=== PATIENT | female | born 1995 | race Caucasian/White ===

== ENCOUNTER 2019-03-05 16:45 | Inpatient (IN) | payer MEDICAID, OTHER ==
[2019-03-05] MEDS ORDERED: DIAZEPAM 2 MG TAB PO STA (18:08)
--- NOTE | 2019-03-05 18:08 | ED ---
Psych HPI - General Chief Complaint: Psychiatric Symptoms Stated Complaint: Mental health Time Seen by Provider: 03/05/19 17:13 Source: patient Mode of arrival: ambulatory - History of Present Illness Initial Comments: 23-year-old female with a history of depression on Celexa presenting with worsening depressive symptoms and suicidal ideations. Patient's mother states that she lives in the basement, and for the last 1 month has been sleeping 20 hours a day, has lost 2 jobs, and describes the basement as a "hoarder situation." She states that there are clothes in the basement soaked an animal feces and urine, rotting food, and general disarray. The patient states that she has no history of inpatient psychiatric admissions, and has one suicide attempt in the past that she described as a cry for help when she wrapped a plastic back around her face. He admits that her and her mother got into a fight, which has caused 24 hours of constant suicidal ideations with a plan to jump [place] the [place]. She states she's attempted multiple times to obtain psychiatric care, but has been unable to do so. She sees a counselor every month and a half, but her mother states that the patient has such poor insight she doesn't know with talk about when she is there. She denies any homicidal ideations. Denies any auditory or visual hallucinations. Drug or alcohol use. - Related Data Home Medications Medication Instructions Recorded Confirmed Sertraline [Zoloft] 150 mg PO DAILY 03/05/19 03/05/19 Allergies Allergy/AdvReac Type Severity Reaction Status Date / Time latex Allergy Rash/Hives Verified 03/05/19 17:18 nitrile Allergy Rash/Hives Verified 03/05/19 17:18 Review of Systems ROS Statement: Those systems with pertinent positive or pertinent negative responses have been documented in the HPI. Review of Systems Constitutional: Denies fever, chills Eyes: Denies change in vision, Denies pain Ears, nose, mouth, throat: Denies headaches, Denies sore throat Cardiovascular: Denies chest pain. Denies palpitations Respiratory: Denies shortness of breath, Denies cough Gastrointestinal: Denies abdominal pain. Denies nausea, vomiting, diarrhea. Genitourinary: Denies hematuria, Denies infections Musculoskeletal: Denies pain, Denies swelling Integumentary: Denies rash Neurological: Denies headache, focal weakness, focal numbness Psychiatric: Positive anxiety, depression, suicidal ideations Hematologic/Lymphatic: Denies easy bleeding or bruising ROS Other: All systems not noted in ROS Statement are negative. Past Medical History Past Medical History: No Reported History History of Any Multi-Drug Resistant Organisms: None Reported Past Surgical History: No Surgical Hx Reported Past Psychological History: Anxiety, Depression Smoking Status: Never smoker Past Alcohol Use History: None Reported Past Drug Use History: None Reported General Exam - General Exam Comments Initial Comments: General: Awake, alert, No acute Distress HENT: Normocephalic. Atraumatic Eyes: PERRL. EOMI. No scleral icterus. No injected conjunctiva Neck: Full ROM Chest/Lungs: Clear to auscultation bilaterally. No wheezing, rhonchi, or rales Cardiac: Regular rate, rhythm. No murmurs or rubs Abdomen/GI: Soft, nontender, nondistended. No rebound, guarding, or rigidity. Musculoskeletal: Full ROM Skin: Warm, dry, intact Pysch: Tearful, anxious, positive suicidal ideations with plan Neurologic: A/Ox3, no weakness, no sensory deficit, no abnormal gait, no coordination deficit Limitations: no limitations Course Vital Signs 03/05/19 17:08 Temperature 98.7 F Pulse Rate 77 Respiratory 18 Rate Blood Pressure 112/78 O2 Sat by Pulse 96 Oximetry Medical Decision Making - Medical Decision Making 23 yoF presenting with depressive symptoms. On initial exam the patient is awake, alert, and in NAD. VSS. She was evaluated by myself and psychiatric assessment nurse. We both feel at this time the patient is appropriate for inpatient admission to this hospital. Patient herself is agreeable to that plan. She will be transferred to the psychiatric care unit. - Lab Data Lab Results 03/05/19 03/05/19 03/05/19 Range/Units 20:30 20:30 20:30 Urine Color Yellow Urine Appearance Clear (Clear) Urine pH 6.0 (5.0-8.0) Ur Specific [place] 1.031 (1.001-1.035) Urine Protein Trace H (Negative) Urine Glucose (UA) Negative (Negative) Urine Ketones Negative (Negative) Urine Blood Negative (Negative) Urine Nitrite Negative (Negative) Urine Bilirubin Negative (Negative) Urine Urobilinogen <2.0 (<2.0) mg/dL Ur Leukocyte Esterase Negative (Negative) Urine HCG, Qual Not Detected (Not Detectd) Urine Opiates Screen Not Detected (NotDetected) Ur Oxycodone Screen Not Detected (NotDetected) Urine Methadone Screen Not Detected (NotDetected) Ur Propoxyphene Screen Not Detected (NotDetected) Ur Barbiturates Screen Not Detected (NotDetected) U Tricyclic Antidepress Not Detected (NotDetected) Ur Phencyclidine Scrn Not Detected (NotDetected) Ur Amphetamines Screen Not Detected (NotDetected) U Methamphetamines Scrn Not Detected (NotDetected) U Benzodiazepines Scrn Not Detected (NotDetected) Urine Cocaine Screen Not Detected (NotDetected) U Marijuana (THC) Screen Detected H (NotDetected) Disposition Clinical Impression: Suicidal ideations, Depressive disorder Disposition: TRANSFER TO PSYCH HOSP/UNIT Condition: Good Is patient prescribed a controlled substance at d/c from ED?: No Decision to Admit Reason: Admit from EC Decision Date: 03/05/19 Decision Time: 20:27
[2019-03-05] MEDS ORDERED: MAGNESIUM HYDROXIDE 2,400 MG/10 ML CUP PO PRN (21:14)
[2019-03-05] MEDS ORDERED: LORazepam 1 MG TAB PO PRN (21:14)
[2019-03-05] MEDS ORDERED: ACETAMINOPHEN TAB 325 MG TAB PO PRN (21:14)
[2019-03-05] MEDS ORDERED: MAG HYDROX/AL HYDROX/SIMETH 30 ML CUP PO PRN (21:14)
[2019-03-05 21:38] LABS: Amphetamine Screen,Urine Not Detected (NotDetected); Barbiturate Screen,Urine Not Detected (NotDetected); Benzodiazepines Screen,Urine Not Detected (NotDetected); Cocaine Screen,Urine Not Detected (NotDetected); Methadone Screen, Urine Not Detected (NotDetected); Opiate Screen,Urine Not Detected (NotDetected); Oxycodone Screen, Urine Not Detected (NotDetected); Phencyclidine Screen,Urine Not Detected (NotDetected); Tricyclic Antidepressant,Urine Not Detected (NotDetected); Urn Cannabinoid Scrn Detected (NotDetected)
[2019-03-05 22:09] VITALS: BMI 26.4
[2019-03-05 23:00] LABS: Appearance,Urine Clear (Clear); Bilirubin,Urine Negative (Negative); Blood,Urine Negative (Negative); Color,Urine Yellow; Glucose,Urine (UA) Negative (Negative); Ketones,Urine Negative (Negative); Leukocyte Esterase,Urine Negative (Negative); Nitrite,Urine Negative (Negative); Protein,Urine Trace (Negative); Specific Gravity,Urine 1.031 (1.001-1.035); Urobilinogen,Urine <2.0 mg/dL (<2.0)
[2019-03-06 08:56] LABS: Basophils % (A) 1 %; Eosinophils # (A) 0.2 k/uL (0-0.7); Eosinophils % (A) 4 %; HCT 39.9 % (34.0-46.0); HGB 13.4 gm/dL (11.4-16.0); Lymphocytes # (A) 1.9 k/uL (1.0-4.8); Lymphocytes % (A) 36 %; MCH 29.5 pg (25.0-35.0); MCHC 33.6 g/dL (31.0-37.0); MCV 87.8 fL (80.0-100.0); Mean Platelet Volume 8.6; Monocytes # (A) 0.3 k/uL (0-1.0); Monocytes % (A) 5 %; Neutrophils # (A) 2.6 k/uL (1.3-7.7); Neutrophils % (A) 51 %; Platelet Count 172 k/uL (150-450); RBC 4.54 m/uL (3.80-5.40); WBC 5.1 k/uL (3.8-10.6)
[2019-03-06 09:11] LABS: ALT 19 U/L (9-52); AST 20 U/L (14-36); African American GFR (CKD) >90 (>60 ml/min/1.73 sqM); Albumin 4.6 g/dL (3.5-5.0); Alkaline Phosphatase 50 U/L (38-126); Anion Gap 10 mmol/L; Blood Urea Nitrogen 12 mg/dL (7-17); Calcium 9.5 mg/dL (8.4-10.2); Carbon Dioxide 26 mmol/L (22-30); Chloride 104 mmol/L (98-107); Cholesterol 156 mg/dL (<200); Glucose 93 mg/dL (74-99); HDL Cholesterol 37 mg/dL (40-60); LDL Cholesterol,Calculated 108 mg/dL (0-99); Potassium 4.3 mmol/L (3.5-5.1); Sodium 140 mmol/L (137-145); Total Bilirubin 1.2 mg/dL (0.2-1.3); Total Protein 7.4 g/dL (6.3-8.2); Triglycerides 55 mg/dL (<150)
[2019-03-06] MEDS: SERTRALINE 50 MG TAB PO SCH (09:24)
--- NOTE | 2019-03-06 09:42 | P.HP ---
Psychiatric H&P - . H&P Date: 03/06/19 History & Physical: Allergies Allergy/AdvReac Type Severity Reaction Status Date / Time latex Allergy Rash/Hives Verified 03/06/19 02:21 nitrile Allergy Rash/Hives Verified 03/06/19 02:21 Vital Signs Temp 97.6 F 03/06/19 07:06 Pulse 61 03/06/19 07:06 Resp 14 03/06/19 07:06 BP 90/50 03/06/19 07:06 Pulse Ox 97 03/05/19 21:58 Intake & Output 03/05/19 03/06/19 03/06/19 18:59 06:59 18:59 Weight 72.575 kg Laboratory Last Values WBC 5.1 k/uL (3.8-10.6) 03/06/19 08:35 RBC 4.54 m/uL (3.80-5.40) 03/06/19 08:35 Hgb 13.4 gm/dL (11.4-16.0) 03/06/19 08:35 Hct 39.9 % (34.0-46.0) 03/06/19 08:35 MCV 87.8 fL (80.0-100.0) 03/06/19 08:35 MCH 29.5 pg (25.0-35.0) 03/06/19 08:35 MCHC 33.6 g/dL (31.0-37.0) 03/06/19 08:35 RDW 13.0 % (11.5-15.5) 03/06/19 08:35 Plt Count 172 k/uL (150-450) 03/06/19 08:35 Neutrophils % 51 % 03/06/19 08:35 Lymphocytes % 36 % 03/06/19 08:35 Monocytes % 5 % 03/06/19 08:35 Eosinophils % 4 % 03/06/19 08:35 Basophils % 1 % 03/06/19 08:35 Neutrophils # 2.6 k/uL (1.3-7.7) 03/06/19 08:35 Lymphocytes # 1.9 k/uL (1.0-4.8) 03/06/19 08:35 Monocytes # 0.3 k/uL (0-1.0) 03/06/19 08:35 Eosinophils # 0.2 k/uL (0-0.7) 03/06/19 08:35 Basophils # 0.0 k/uL (0-0.2) 03/06/19 08:35 Sodium 140 mmol/L (137-145) 03/06/19 08:35 Potassium 4.3 mmol/L (3.5-5.1) 03/06/19 08:35 Chloride 104 mmol/L (98-107) 03/06/19 08:35 Carbon Dioxide 26 mmol/L (22-30) 03/06/19 08:35 Anion Gap 10 mmol/L 03/06/19 08:35 BUN 12 mg/dL (7-17) 03/06/19 08:35 Creatinine 0.67 mg/dL (0.52-1.04) 03/06/19 08:35 Est GFR (CKD-EPI)AfAm >90 (>60 ml/min/1.73 sqM) 03/06/19 08:35 Est GFR (CKD-EPI)NonAf >90 (>60 ml/min/1.73 sqM) 03/06/19 08:35 Glucose 93 mg/dL (74-99) 03/06/19 08:35 Calcium 9.5 mg/dL (8.4-10.2) 03/06/19 08:35 Total Bilirubin 1.2 mg/dL (0.2-1.3) 03/06/19 08:35 AST 20 U/L (14-36) 03/06/19 08:35 ALT 19 U/L (9-52) 03/06/19 08:35 Alkaline Phosphatase 50 U/L (38-126) 03/06/19 08:35 Total Protein 7.4 g/dL (6.3-8.2) 03/06/19 08:35 Albumin 4.6 g/dL (3.5-5.0) 03/06/19 08:35 Triglycerides 55 mg/dL (<150) 03/06/19 08:35 Cholesterol 156 mg/dL (<200) 03/06/19 08:35 LDL Cholesterol, Calc 108 mg/dL (0-99) H 03/06/19 08:35 HDL Cholesterol 37 mg/dL (40-60) L 03/06/19 08:35 Urine Color Yellow 03/05/19 20:30 Urine Appearance Clear (Clear) 03/05/19 20:30 Urine pH 6.0 (5.0-8.0) 03/05/19 20:30 Ur Specific [place] 1.031 (1.001-1.035) 03/05/19 20:30 Urine Protein Trace (Negative) H 03/05/19 20:30 Urine Glucose (UA) Negative (Negative) 03/05/19 20:30 Urine Ketones Negative (Negative) 03/05/19 20:30 Urine Blood Negative (Negative) 03/05/19 20:30 Urine Nitrite Negative (Negative) 03/05/19 20:30 Urine Bilirubin Negative (Negative) 03/05/19 20:30 Urine Urobilinogen <2.0 mg/dL (<2.0) 03/05/19 20:30 Ur Leukocyte Esterase Negative (Negative) 03/05/19 20:30 Urine HCG, Qual Not Detected (Not Detectd) 03/05/19 20:30 Urine Opiates Screen Not Detected (NotDetected) 03/05/19 20:30 Ur Oxycodone Screen Not Detected (NotDetected) 03/05/19 20:30 Urine Methadone Screen Not Detected (NotDetected) 03/05/19 20:30 Ur Propoxyphene Screen Not Detected (NotDetected) 03/05/19 20:30 Ur Barbiturates Screen Not Detected (NotDetected) 03/05/19 20:30 U Tricyclic Antidepress Not Detected (NotDetected) 03/05/19 20:30 Ur Phencyclidine Scrn Not Detected (NotDetected) 03/05/19 20:30 Ur Amphetamines Screen Not Detected (NotDetected) 03/05/19 20:30 U Methamphetamines Scrn Not Detected (NotDetected) 03/05/19 20:30 U Benzodiazepines Scrn Not Detected (NotDetected) 03/05/19 20:30 Urine Cocaine Screen Not Detected (NotDetected) 03/05/19 20:30 U Marijuana (THC) Screen Detected (NotDetected) H 03/05/19 20:30 03/06/19 09:25 Identification: Patient is a 23-year-old female who asked to be brought to the emergency room yesterday due to increasing symptoms of depression, suicidal thoughts with a plan to either jump off the bridge or drown herself. History of Present Illness: Patient states that she's been treated for depression since the age of 14 and has had symptoms since the age of 10. She states that she's been on and off medication since the age of 14 with little benefit. Patient states that she has been tried on Prozac, Celexa, Paxil with little benefit and Wellbutrin which caused a bad reaction. She states as a child she was also diagnosed with attention deficit disorder and was on medications, but did not have a good response to them and was last on them in 10th grade. She states that she is currently been on Zoloft 150 mg for the last several years with no increased or changed to her dosage in the last year. She states that initially the medication was beneficial for her depression and especially helpful for panic attacks that she has had the past. She states that her anxiety is much improved on the Zoloft and that the panic attacks occur much less frequently and are much less intense. She reports prior to starting Zoloft she was having several panic attacks a day and now perhaps has one once a week. She states that recently she is been feeling increasingly depressed, lost a job that she had for 2 years and then lost another job after that due to repeated absences were coming to work late. She states that she sleeps over 12 hours a day, continues to feel tired and exhausted and has no interest in doing things. She states that she has been taking care of her personal hygiene but reports that her mother is told her her room is an absolute mess. Patient has been living in the basement of her mother's house, she describes what her mother told her about her basement that there are animal feces, food, clothing and it is not clean and the patient states that she wasn't aware that it was this bad but does agree that she has not been taking care of her room. She states that she has been more withdrawn has been feeling hopeless and has had thoughts that things would be better off without her. She reports that recently she had an argument with her mother because the patient had a boy over to the house when her mother was not present, her mother found a condom and she states that after this argument she had suicidal thoughts for the next 24 hours. She states that she felt overwhelmed and was crying and began to have plans to jump off the bridge or drown herself and this is when she requested being brought to the emergency room. Patient's medications of been prescribed by Dr. Leal. Patient states that she spends her day sleeping, she states that she is either eating too much or not enough at all and states that she has no interest in doing much of anything. Patient states it's difficult for her to focus and concentrate as she is easily distracted states that she always has multiple ideas going on in her head. Patient states it's difficult for her to organize herself and she uses no organizational assistance, such as an organizer, day [employer] pl[employer]. She states when she was working she would forget to check the schedule, what arrived late or just not appear work. Patient states that she is currently not feeling suicidal but still has the thought that everything would be better if she wasn't here. She has no intent to act on these thoughts at this time and states that she does not want to . Patient does not endorse any psychotic symptoms or manic symptoms. She reports a suicide attempt in the ninth grade when she placed a plastic bag over her head and wrapped a belt around her neck and her mother found her. She states that she is never had any prior inpatient psychiatric admissions. She reports as above that Zoloft has been up most benefit to her over the other medications that she has tried. Patient is not currently in counseling. Patient is using marijuana 2-3 times a week and states that it helps with her anxiety. Past Psychiatric History: Patient has no prior inpatient psychiatric admissions, being prescribed Zoloft 150 mg by her primary care provider and has been tried on Celexa, Prozac, Paxil with no benefit and Wellbutrin with side effects. Tete esquivel is also been treated in the past for attention deficit disorder and states she did not have a good response to those medications. Past Medical/Surgical History: Patient denies any current medical problems, no surgical history and the patient is on long-acting control Family History: Patient states that her mother is being treated for depression, paternal grandmother has an unknown psychiatric disorder and that on her maternal side there is a history of alcohol and drug use. She reports no completed suicides Social History: Patient was born and raised in [place] her parents are both alive and when she was 9 years of age. She continued to live with her mother who remarried when the patient was 14 years of age and when the patient was 20 or 21. She has an older sister and a younger half-sister. She states her relationship with her father is not great as he was really not present and she has infrequent contact with him. She completed high school states that she was not in special education and her grades varied from A's to C's and she states that several times she almost failed a grade. Patient states that after finishing high school she began working and has always lived with her mother. 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 She obtained a job after that and was also let go due to not showing up for work. Patient states she has no current boyfriend but does have friends but has not been going out with them as much. Substance Use History: Patient states that she uses alcohol every several months 3-4 drinks, uses marijuana 2-3 times a week and no other drug use history. Patient does not use tobacco products Legal History: Patient denies Mental status: Appearance/Attitude: Patient is neatly dressed, makes good eye contact and is cooperative Behavior: Patient does not display any psychomotor agitation or retardation Speech/Language: Speech is spontaneous, normal volume and rhythm and she is coherent. Thought Process: Patient is goal-directed there is no evidence of loose associations or flight of ideas Thought Content: Patient denies any auditory or visual hallucinations no paranoid or delusional ideation is elicited. Patient reports feeling hopeless and worthless, crying spells feeling withdrawn and reports feeling constantly tired with no energy or interest to do things. She reports sleeping more than 12 hours a day and either overeating or not eating. She states she feels disorganized has been caring for her personal hygiene, describes her room is a mess. Suicidal/Homicidal Ideation: Patient denies any current suicidal plans or intent but continues to have passive thoughts that things would be better if she wasn't here, no current homicidal ideation Sensorium/Cognition: Patient is alert and oriented to person, place, and time. Recent and remote memory are grossly intact, patient states she has difficulty organizing herself as well as concentrating. Mood/Affect: Patient's mood is depressed and her affect is appropriate to her mood Insight/Judgment: Patient's insight and judgment are fair Intellectual Functioning: Patient's intellectual functioning appears average Strength/Weakness: Patient has housing, supportive family, interest in treatment/limited coping skills Assessment: Patient presents with a history of depression since her early teens and has been treated with multiple medication trials and states that Zoloft has been the most effective for treating her symptoms of panic attacks and was beneficial for her depression until the last several months or so. Patient states that she was also diagnosed as a child with attention deficit disorder but never responded well to medications. Patient states that recently she is been feeling increasingly depressed, oversleeping at times over eating or not eating at all and has not been able to get to work either on time or missing shifts completely. She states that she's been caring for her personal hygiene but that her room is a mess as described above. Patient states she's feeling hopeless and worthless and after a recent argument with her mother had suicidal thoughts with a plan to jump off the bridge or drown herself for the next day and requested to be brought to the hospital. Patient continues to passively feel that things would be better off without her but has no current plan or intent to act. Patient states that she feels withdrawn and hopeless and depressed. Patient reports difficulty concentrating and organizing herself. Nhan garcia has been receiving her medications from her primary care physician and is not currently in counseling. Admission Diagnosis: Major depressive disorder, recurrent moderate severity; panic disorder; cannabis use disorder, mild; history of attention deficit disorder Plan: Patient was admitted on a voluntary basis, placed on routine observation in group and activity therapy were ordered. Patient also had routine laboratory studies and a medical consultation ordered. I met with the patient and discussed continuing her on her Zoloft that she feels it is been beneficial for her panic attacks have decreased in frequency and severity. We discussed options to augment her response to the Zoloft and discussed the use and side effects of Abilify and will begin 1 mg at bedtime. Patient and I also discussed the use of external aids to assist in organizing herself when she is released from the hospital and the benefit of going for outpatient counseling. Patient was also advised to avoid marijuana once she is released from the hospital and alcohol. Patient will continue on Zoloft 150 mg in the morning and will start Abilify 1 mg at bedtime to target her mood. Patient was encouraged to attend groups and activities. Patient requires hospitalization to stabilize her mood. 03/06/19 09:31
--- NOTE | 2019-03-06 16:53 | P.CONS ---
History of Present Illness - Reason for Consult Consult date: 03/06/19 Medical management Requesting physician: Rosie Talley - Chief Complaint Depressed - History of Present Illness Consultation: This is a 23-year-old patient of Dr. Sonam Leal. Long-standing history of anxiety depression. Does take Zoloft at home. Patient lives in the basement of her mother. Patient is having a difficult time keeping up her work schedule. Often sleeps for long hours. Sometimes gets up late. Patient has lost also job. Sometimes she eats too much sometimes she still little. Feels depressed anxious suicidal. No fever no chills. Does marijuana occasionally seems to have lost interest in things. Was admitted to [facility] and [address]. psychiatry floor. Review of systems: GEN.: Tired EYES: None HEENT: None NECK: None RESPIRATORY: None CARDIOVASCULAR: None GASTROINTESTINAL: None GENITOURINARY: None MUSCULOSKELETAL: None LYMPHATICS: None HEMATOLOGICAL: None PSYCHIATRY: As above NEUROLOGICAL: None Social history: Does marijuana occasionally. Does not smoke. Alcohol rarely. Lives in the b asement of her mother's house Family history: Reviewed, noncontributory presentation Physical examination: VITAL SIGNS: 98.7, 77, 18, 112/78, 96% on room air GENERAL: Average built, lying in bed sleeping when I walked in. EYES: Pupils equal. Conjunctiva allyn, strabismus of the left eye l. HEENT: External appearance of nose and ears normal, oral cavity grossly normal. NECK: JVD not raised; masses not palpable. HEART: First and second heart sounds are normal; no edema. LUNGS: Respiratory rate normal; clear to auscultation. ABDOMEN: Soft, nontender, liver spleen not palpable, no masses palpable. PSYCH: [Alert and oriented x3; mood and affect a bit low l. NEUROLOGICAL: Cranial nerves grossly intact; no facial asymmetry, power and sensation grossly intact. LYMPHATICS: No lymph nodes palpable in the axilla and neck Investigations, reviewed in the clinical context: White count 5.1, hemoglobin 13.4, potassium 4.3, BNP 12, creatinine 0.67, TSH 1.7 Assessment: -recreational marijuana use -Major depressive disorder, recurrent moderate severity Plan: Patient was told to focus more on her interest that she has. Patient likes to sing. In fact she ssang one line and sang rather well. Patient advised against use of marijuana Thank you Dr. Talley Past Medical History Past Medical History: No Reported History History of Any Multi-Drug Resistant Organisms: None Reported Past Surgical History: No Surgical Hx Reported Past Psychological History: Anxiety, Depression Smoking Status: Never smoker Past Alcohol Use History: None Reported Past Drug Use History: None Reported Medications and Allergies Home Medications Medication Instructions Recorded Confirmed Type Sertraline [Zoloft] 150 mg PO DAILY 03/05/19 03/05/19 History Allergies Allergy/AdvReac Type Severity Reaction Status Date / Time latex Allergy Rash/Hives Verified 03/06/19 02:21 nitrile Allergy Rash/Hives Verified 03/06/19 02:21 Physical Exam Vitals: Vital Signs Temp Pulse Pulse Resp BP BP Pulse Ox 03/06/19 07:06 97.6 F 61 14 90/50 03/05/19 21:58 96.6 F L 64 18 112/69 97 03/05/19 21:45 96.6 F L 64 18 112/69 97 03/05/19 21:43 98.2 F 71 16 127/87 98 03/05/19 17:08 98.7 F 77 18 112/78 96 Intake and Output 03/05/19 03/06/19 03/06/19 22:59 06:59 14:59 Other: Weight 72.575 kg Results CBC & Chem 7: 03/06/19 08:35 03/06/19 08:35 Labs: Abnormal Lab Results - Last 24 Hours (Table) 03/05/19 03/05/19 03/06/19 Range/Units 20:30 20:30 08:35 LDL Cholesterol, Calc 108 H (0-99) mg/dL HDL Cholesterol 37 L (40-60) mg/dL Urine Protein Trace H (Negative) U Marijuana (THC) Screen Detected H (NotDetected)
[2019-03-06] MEDS: ARIPiprazole 2 MG TAB PO SCH (20:39)
[2019-03-07] MEDS: SERTRALINE 50 MG TAB PO SCH (08:44)
[2019-03-07 12:57] LABS: Hemoglobin A1C 5.4 % (4.0-6.0)
--- NOTE | 2019-03-07 13:32 | P.PN ---
Progress Note - Text Progress Note Date: 03/07/19 Interval History: Patient is a 23-year-old female who was seen today and she reports that she didn't sleep well last night, stating that she felt tired this morning and didn't attend group. Patient states that she is not feeling suicidal but still feels depressed. Patient states that she wonders how long she'll be here and becomes upset stating that she fears she'll be here forever. Patient states that she thinks organizing herself using a day life care planner may be a good idea. Mental Status: Appearance/Attitude: Patient is casually dressed, makes eye contact and is cooperative Behavior: Patient does not display any psychomotor agitation or retardation. Speech/Language: Patient's speech is of normal volume and rhythm and she is coherent Thought Process: Patient is goal-directed there is no evidence of loose association or flight of ideas Thought Content: Patient denies any auditory or visual hallucinations and no delusions or paranoid ideation or elicited. Patient states that she continues to feel depressed, became tearful when discussing how long she will be in the hospital, states her sleep is still disrupted and she feels tired and unmotivated. Patient states that she is eating okay. Suicidal/Homicidal Ideation: Patient denies any current suicidal or homicidal ideation Sensorium/Cognition: Patient is alert and oriented to person, place, and time and her recent and remote memory are grossly intact. Patient reports continued difficulties focusing and concentrating Mood/Affect: His mood remains depressed and tearful and her affect is appropriate to her mood Insight/Judgment: Patient's insight and judgment are fair Assessment: Patient states that she didn't sleep well last night was up and down most of the night he slept total of about 4 hours. She reports continuing to feel depressed and tired and unmotivated as well as having difficulty focusing and concentrating area patient reports no suicidal thoughts. She attended groups yesterday but states this morning she did not attend groups as she was too tired. She reports no side effects from medication. Plan: Patient will continue on Abilify 1 mg and Zoloft 150 mg daily to target her mood and patient continues to require hospitalization to stabilize her mood. Patient and I again discussed using external tools to organize herself after she is discharged.
[2019-03-07] MEDS: ARIPiprazole 2 MG TAB PO SCH (21:18)
[2019-03-08] MEDS: SERTRALINE 50 MG TAB PO SCH (09:07)
--- NOTE | 2019-03-08 13:18 | P.PN ---
Progress Note - Text Progress Note Date: 03/08/19 Interval History: Patient is a 23-year-old female who was seen today and she reports that she slept well last night sleeping for 7 hours, patient states that she is no longer having any suicidal ideation. She states she is having a difficult time getting up in the morning and has not been eating breakfast are tending a.m. groups. She states that she was able to read for an hour yesterday and her focus is improved. She states that she is feeling less spacey but continues to be depressed but not overwhelmed. Mental Status:Appearance/Attitude: Patient is casually dressed, makes eye contact and is cooperative Behavior: Patient does not exhibit any psychomotor agitation or retardation. Speech/Language: Patient's speech is spontaneous of normal volume and rhythm and she is coherent Thought Process: Patient is goal-directed she is not exhibiting any loose association or flight of ideas Thought Content: Patient denies any auditory or visual hallucinations and no delusions or paranoid ideation were elicited. Patient continues to be unmotivated, having difficulty getting up in the morning and attending groups during the day. She reports feeling depressed still but states that she is able to focus better. Patient states that she has been sleeping well. Suicidal/Homicidal Ideation: Patient denies any current suicidal or homicidal ideation Sensorium/Cognition: Patient is alert and oriented to person, place, and time and her recent and remote memory are grossly intact. Patient states her focus is improved. Mood/Affect: Patient's mood remains depressed and her affect blunted Insight/Judgment: Patient's insight and judgment are fair Assessment: Patient states that she slept well last evening, states that she's feeling less depressed and no current suicidal ideation. Patient has not been attending groups only attending 1 group yesterday. Patient continues to have difficulty getting up in the morning. Patient states that she was able to read for an hour yesterday and feels that her focus has improved and she is feeling less spacey. Patient reports no side effects from the medication. Plan: Patient continue on Abilify 1 mg daily and Zoloft 150 mg daily to target her depression and encourage the patient to attend groups and activities. We'll continue to assess the need to increase either of her medications. Patient continues to require hospitalization to further target her depressive symptoms. Patient and I also discussed coping strategies to stay on task once she is at home and to improve her organizational skills.
[2019-03-08] MEDS: ARIPiprazole 2 MG TAB PO SCH (21:11)
[2019-03-09] MEDS: SERTRALINE 50 MG TAB PO SCH (08:54)
--- NOTE | 2019-03-09 11:40 | P.PN ---
Progress Note - Text Progress Note Date: 03/09/19 Interval History: Patient is a 23-year-old female who was seen today and she reports that she was able to completely read a book yesterday and states that her thinking is much clearer and she is more focused. She denies any suicidal ideation and states that she is feeling better. Patient became tearful because she states that she is ready to return home. Patient states that she is feeling less depressed, not as overwhelmed. Mental Status: Appearance/Attitude: Patient is neatly dressed, makes eye contact and was cooperative Behavior: Patient does not display any psychomotor agitation or retardation. Speech/Language: Speech is spontaneous of normal volume and rhythm and she is coherent. Thought Process: Patient is goal-directed there is no evidence of loose association or flight of ideas Thought Content: Patient denies any auditory or visual hallucinations and no delusions or paranoid ideation or elicited. Patient states that she is thinking much clearer her focus and concentration have improved and she feels ready to return home. She states that she sleeping well and eating well. Suicidal/Homicidal Ideation: Patient denies any current suicidal or homicidal ideation Sensorium/Cognition: Patient is alert and oriented to person, place, and time and her recent and remote memory are grossly intact Mood/Affect: Patient's mood remains slightly depressed patient became tearful when discussing wanting to be discharged today. Insight/Judgment: Patient's insight and judgment are fair Assessment: Patient reports her thinking is clearer she is feeling less depressed and is not currently suicidal. She states her focus and concentration have improved and she was able to completely read a book yesterday. She states that she feels ready to return home. Patient attended 2 groups yesterday. Patient reports no side effects from the medication and feels that the Abilify has been beneficial. Plan: She will continue on Abilify 1 mg at bedtime and Zoloft 150 mg in the morning. Patient is already set up with counseling at [facility] but needs a prescriber. Possible discharge Thursday was discussed, patient requires a follow-up appointment with a prescriber as well as a family meeting.
[2019-03-09] MEDS: ARIPiprazole 2 MG TAB PO SCH (20:30)
[2019-03-10 06:49] VITALS: BP 89/61; PULSE 75; RESP 18; TEMP 98
[2019-03-10] MEDS: SERTRALINE 50 MG TAB PO SCH (08:32)
--- NOTE | 2019-03-10 09:44 | P.DS ---
Providers Date of admission: 03/05/19 21:03 Expected date of discharge: 03/10/19 Attending physician: Rosie Talley MD Consults: 03/05/19 21:14 Consult Physician Routine Consulting Provider: Rolf Cerna Consult Reason/Comments: medical management Do you want consulting provider notified?: Yes, Notify in am Primary care physician: [facility] Course: Discharge Diagnosis: Major depressive disorder, recurrent moderate severity; panic disorder; cannabis use disorder mild Reason for Admission: Patient is a 23-year-old female who asked to be brought to the emergency room yesterday due to increasing symptoms of depression, suicidal thoughts with a plan to either jump off the bridge or drown herself. Patient states that she's been treated for depression since the age of 14 and has had symptoms since the age of 10. She states that she's been on and off medication since the age of 14 with little benefit. Patient states that she has been tried on Prozac, Celexa, Paxil with little benefit and Wellbutrin which caused a bad reaction. She states as a child she was also diagnosed with attention deficit disorder and was on medications, but did not have a good response to them and was last on them in 10th grade. She states that she is currently been on Zoloft 150 mg for the last several years with no increased or changed to her dosage in the last year. She states that initially the medication was beneficial for her depression and especially helpful for panic attacks that she has had the past. She states that her anxiety is much improved on the Zoloft and that the panic attacks occur much less frequently and are much less intense. She reports prior to starting Zoloft she was having several panic attacks a day and now perhaps has one once a week. She states that recently she is been feeling increasingly depressed, lost a job that she had for 2 years and then lost another job after that due to repeated absences were coming to work late. She states that she sleeps over 12 hours a day, continues to feel tired and exhausted and has no interest in doing things. She states that she has been taking care of her personal hygiene but reports that her mother is told her her room is an absolute mess. Patient has been living in the basement of her mother's house, she describes what her mother told her about her basement that there are animal feces, food, clothing and it is not clean and the patient states that she wasn't aware that it was this bad but does agree that she has not been taking care of her room. She states that she has been more withdrawn has been feeling hopeless and has had thoughts that things would be better off without her. She reports that recently she had an argument with her mother because the patient had a boy over to the house when her mother was not present, her mother found a condom and she states that after this argument she had suicidal thoughts for the next 24 hours. She states that she felt overwhelmed and was crying and began to have plans to jump off the bridge or drown herself and this is when she requested being brought to the emergency room. Patient's medications of been prescribed by Dr. Leal. Patient states that she spends her day sleeping, she states that she is either eating too much or not enough at all and states that she has no interest in doing much of anything. Patient states it's difficult for her to focus and concentrate as she is easily distracted states that she always has multiple ideas going on in her head. Patient states it's difficult for her to organize herself and she uses no organizational assistance, such as an organizer, day airport planner. She states when she was working she would forget to check the schedule, what arrived late or just not appear work. Patient states that she is currently not feeling suicidal but still has the thought that everything would be better if she wasn't here. She has no intent to act on these thoughts at this time and states that she does not want to . Patient does not endorse any psychotic symptoms or manic symptoms. She reports a suicide attempt in the ninth grade when she placed a plastic bag over her head and wrapped a belt around her neck and her mother found her. She states that she is never had any prior inpatient psychiatric admissions. She reports as above that Zoloft has been up most benefit to her over the other medications that she has tried. Patient is not currently in counseling. Patient is using marijuana 2-3 times a week and states that it helps with her anxiety. Mental status on admission: Appearance/Attitude: Patient is neatly dressed, makes good eye contact and is cooperative Behavior: Patient does not display any psychomotor agitation or retardation Speech/Language: Speech is spontaneous, normal volume and rhythm and she is coherent. Thought Process: Patient is goal-directed there is no evidence of loose associations or flight of ideas Thought Content: Patient denies any auditory or visual hallucinations no paranoid or delusional ideation is elicited. Patient reports feeling hopeless and worthless, crying spells feeling withdrawn and reports feeling constantly tired with no energy or interest to do things. She reports sleeping more than 12 hours a day and either overeating or not eating. She states she feels disorganized has been caring for her personal hygiene, describes her room is a mess. Suicidal/Homicidal Ideation: Patient denies any current suicidal plans or intent but continues to have passive thoughts that things would be better if she wasn't here, no current homicidal ideation Sensorium/Cognition: Patient is alert and oriented to person, place, and time. Recent and remote memory are grossly intact, patient states she has difficulty organizing herself as well as concentrating. Mood/Affect: Patient's mood is depressed and her affect is appropriate to her mood Insight/Judgment: Patient's insight and judgment are fair Hospital Course: Patient was admitted on a voluntary basis, routine observation was ordered and the patient was also ordered group and activity therapy. Patient routine laboratory studies and a medical consultation was ordered. Patient was continued on the Zoloft at 150 mg in the morning and we discussed the use of Abilify to augment the Zoloft she was agreeable to this and we reviewed the use and side effects. Patient was begun on Abilify 1 mg at bedtime. Patient showed improvement on the unit reporting she is no longer feeling suicidal and states that she wasn't feeling less scattered. Patient stated that she was able to read and focus better. Patient and I discussed the use of organizational skills and tools to assist her in keeping herself organized and on task after discharge. Patient attended some groups and activities, she stated she was sleeping and eating well. Patient was able to discuss the difficulties that she had keeping herself organized, that her living situation was a mess, not cleaning and that she had not been taking care of things. Patient states that she's feeling better, no longer feeling as depressed, no suicidal ideation and felt that she was less scattered and better able to organize herself. Patient reported no side effects from the medication. Patient felt she was ready for discharge. Allergies latex Allergy (Verified 03/06/19 02:21) Rash/Hives nitrile Allergy (Verified 03/06/19 02:21) Rash/Hives Laboratory Last Values WBC 5.1 k/uL (3.8-10.6) 03/06/19 08:35 RBC 4.54 m/uL (3.80-5.40) 03/06/19 08:35 Hgb 13.4 gm/dL (11.4-16.0) 03/06/19 08:35 Hct 39.9 % (34.0-46.0) 03/06/19 08:35 MCV 87.8 fL (80.0-100.0) 03/06/19 08:35 MCH 29.5 pg (25.0-35.0) 03/06/19 08:35 MCHC 33.6 g/dL (31.0-37.0) 03/06/19 08:35 RDW 13.0 % (11.5-15.5) 03/06/19 08:35 Plt Count 172 k/uL (150-450) 03/06/19 08:35 Neutrophils % 51 % 03/06/19 08:35 Lymphocytes % 36 % 03/06/19 08:35 Monocytes % 5 % 03/06/19 08:35 Eosinophils % 4 % 03/06/19 08:35 Basophils % 1 % 03/06/19 08:35 Neutrophils # 2.6 k/uL (1.3-7.7) 03/06/19 08:35 Lymphocytes # 1.9 k/uL (1.0-4.8) 03/06/19 08:35 Monocytes # 0.3 k/uL (0-1.0) 03/06/19 08:35 Eosinophils # 0.2 k/uL (0-0.7) 03/06/19 08:35 Basophils # 0.0 k/uL (0-0.2) 03/06/19 08:35 Sodium 140 mmol/L (137-145) 03/06/19 08:35 Potassium 4.3 mmol/L (3.5-5.1) 03/06/19 08:35 Chloride 104 mmol/L (98-107) 03/06/19 08:35 Carbon Dioxide 26 mmol/L (22-30) 03/06/19 08:35 Anion Gap 10 mmol/L 03/06/19 08:35 BUN 12 mg/dL (7-17) 03/06/19 08:35 Creatinine 0.67 mg/dL (0.52-1.04) 03/06/19 08:35 Est GFR (CKD-EPI)AfAm >90 (>60 ml/min/1.73 sqM) 03/06/19 08:35 Est GFR (CKD-EPI)NonAf >90 (>60 ml/min/1.73 sqM) 03/06/19 08:35 Glucose 93 mg/dL (74-99) 03/06/19 08:[address] Glu mg/dL 108 03/06/19 08:35 Hemoglobin A1c 5.4 % (4.0-6.0) 03/06/19 08:35 Calcium 9.5 mg/dL (8.4-10.2) 03/06/19 08:35 Total Bilirubin 1.2 mg/dL (0.2-1.3) 03/06/19 08:35 AST 20 U/L (14-36) 03/06/19 08:35 ALT 19 U/L (9-52) 03/06/19 08:35 Alkaline Phosphatase 50 U/L (38-126) 03/06/19 08:35 Total Protein 7.4 g/dL (6.3-8.2) 03/06/19 08:35 Albumin 4.6 g/dL (3.5-5.0) 03/06/19 08:35 Triglycerides 55 mg/dL (<150) 03/06/19 08:35 Cholesterol 156 mg/dL (<200) 03/06/19 08:35 LDL Cholesterol, Calc 108 mg/dL (0-99) H 03/06/19 08:35 HDL Cholesterol 37 mg/dL (40-60) L 03/06/19 08:35 TSH 1.780 mIU/L (0.465-4.680) 03/06/19 08:35 Urine Color Yellow 03/05/19 20:30 Urine Appearance Clear (Clear) 03/05/19 20:30 Urine pH 6.0 (5.0-8.0) 03/05/19 20:30 Ur Specific Dillon 1.031 (1.001-1.035) 03/05/19 20:30 Urine Protein Trace (Negative) H 03/05/19 20:30 Urine Glucose (UA) Negative (Negative) 03/05/19 20:30 Urine Ketones Negative (Negative) 03/05/19 20:30 Urine Blood Negative (Negative) 03/05/19 20:30 Urine Nitrite Negative (Negative) 03/05/19 20:30 Urine Bilirubin Negative (Negative) 03/05/19 20:30 Urine Urobilinogen <2.0 mg/dL (<2.0) 03/05/19 20:30 Ur Leukocyte Esterase Negative (Negative) 03/05/19 20:30 Urine HCG, Qual Not Detected (Not Detectd) 03/05/19 20:30 Urine Opiates Screen Not Detected (NotDetected) 03/05/19 20:30 Ur Oxycodone Screen Not Detected (NotDetected) 03/05/19 20:30 Urine Methadone Screen Not Detected (NotDetected) 03/05/19 20:30 Ur Propoxyphene Screen Not Detected (NotDetected) 03/05/19 20:30 Ur Barbiturates Screen Not Detected (NotDetected) 03/05/19 20:30 U Tricyclic Antidepress Not Detected (NotDetected) 03/05/19 20:30 Ur Phencyclidine Scrn Not Detected (NotDetected) 03/05/19 20:30 Ur Amphetamines Screen Not Detected (NotDetected) 03/05/19 20:30 U Methamphetamines Scrn Not Detected (NotDetected) 03/05/19 20:30 U Benzodiazepines Scrn Not Detected (NotDetected) 03/05/19 20:30 Urine Cocaine Screen Not Detected (NotDetected) 03/05/19 20:30 U Marijuana (THC) Screen Detected (NotDetected) H 03/05/19 20:30 Discharge Mental Status: Appearance/Attitude: Patient is neatly and appropriately dressed, makes eye contact and is cooperative. Behavior: Patient does not exhibit any psychomotor agitation or retardation Speech/Language: Patient's speech is spontaneous of normal volume and rhythm and she is coherent Thought Process: Patient is goal-directed there is no evidence of loose association or flight of ideas Thought Content: Patient denies any auditory or visual hallucinations and no delusions or paranoid ideation or elicited. Patient states that her thinking is less scattered, states that she is not having any suicidal ideation and feeling less depressed. Patient feels motivated to return home and began taking care of her activities of daily living. Patient was also feeling motivated to look for work. She reports she is eating and sleeping well. Suicidal/Homicidal Ideation: Patient denies any current suicidal or homicidal ideation Sensorium/Cognition: Patient is alert and oriented to person, place, and time and her recent and remote memory are grossly intact Mood/Affect: Patient's mood is more positive and her affect is appropriate Insight/Judgment: Patient's insight and judgment are fair Risk Assessment: Patient's risk for readmission and is low should the patient not follow up with counseling and medication Discharge Plan: Patient will return home living her parents house, she will continue on Abilify 1 mg and request that she take it in the morning along with her Zoloft 150 mg the patient will be given prescriptions for her medications. Patient was encouraged to use organizational tools to help keep herself on task and take care of her activities of daily living. Patient was encouraged to avoid all alcohol and drugs and be compliant with follow-up appointments and medication. [facility] Patient Condition at Discharge: Stable Plan - Discharge Summary Discharge Rx Participant: No New Discharge Prescriptions: New ARIPiprazole [Abilify] 1 mg PO DAILY #7 tab Continue Sertraline [Zoloft] 150 mg PO DAILY #21 tab Discharge Medication List ARIPiprazole [Abilify] 1 mg PO DAILY #7 tab 03/10/19 [Rx] Sertraline [Zoloft] 150 mg PO DAILY #21 tab 03/10/19 [Rx] Follow up Appointment(s)/Referral(s): [facility] - 03/15/19 7:00 pm (Mandy [facility]n ) Dontae Leal DO [Primary Care Provider] - 1-2 days Patient Instructions/Handouts: Suicide Prevention (DC) Activity/Diet/Wound Care/Special Instructions: Activity and diet as tolerated. Avoid the use of street drugs and alcohol. Take all medications as prescribed. When you are in need of refills on your medications please contact your medical provider and/or outpatient psychiatrist to have this done. Please go to scheduled outpatient appointment for aftercare treatment. If symptoms return or become worse, call the crisis line at and/or go to the nearest emergency room for evaluation. Discharge Disposition: HOME SELF-CARE
== END 2019-03-10 11:39 | disposition home or self-care (01) | DRG 885 ==
LOC: EC 16:45 → 3MHU 21:03
PROVIDERS: ADMIT Psychiatry & Neurology Psychiatry; ATTEND Psychiatry & Neurology Psychiatry
DX: F33.1 Major depressive disorder, recurrent, moderate (principal); F12.10 Cannabis abuse, uncomplicated; F41.0 Panic disorder [episodic paroxysmal anxiety]; F98.8 Other specified behavioral and emotional disorders with onset usually occurring in childhood and adolescence; Z91.040 Latex allergy status; Z79.899 Other long term (current) drug therapy; Z81.8 Family history of other mental and behavioral disorders; Z91.5 Personal history of self-harm; Z91.048 Other nonmedicinal substance allergy status
CPT/HCPCS: 80053; 80061; 80306; 81003; 81025; 83036; 84443; 85025; 99285